=== PATIENT | female | born 1990 | race Caucasian/White ===

== ENCOUNTER 2024-07-21 20:24 | Emergency (ER) | payer MEDICAID ==
[~2024-07-21] VITALS: Ht 172.7 cm; Wt 61.2 kg
[2024-07-21] MEDS ORDERED: ALBUTEROL SULFATE 2.5 MG/3 ML NEBU ONE (21:18)
[2024-07-21] MEDS ORDERED: IPRATROPIUM BROMIDE 0.5 MG/2.5 ML NEBU ONE (21:18)
[2024-07-21 21:20] LABS: BASOPHILS % (AUTO) 0.4 % (0.0-2.0); EOSINOPHILS % (AUTO) 3.2 % (0.0-7.0); HEMATOCRIT 36.7 % (31.2-41.9); HEMOGLOBIN 12.8 g/dL (10.9-14.3); MEAN CORPUSCULAR HEMOGLOBIN 31.4 uug (24.7-32.8); MEAN CORPUSCULAR HGB CONC 35 g/dL (32.3-35.6); MONOCYTES % (AUTO) 8.8 % (0.0-11.0); NEUTROPHILS % (AUTO) 76.6 % (38.5-71.5); PLATELET COUNT (AUTO) 233 K/uL (179-408); RED BLOOD CELL COUNT(AUTO) 4.08 MIL/uL (3.63-4.92); RED CELL DISTRIBUTION WIDTH 12.1 % (12.3-17.7); WHITE BLOOD COUNT (AUTO) 9.4 K/uL (3.8-11.8)
[2024-07-21 21:21] LABS: EOSINOPHILS # (AUTO) 0.3 K/uL (0.0-0.7); MONOCYTES # (AUTO) 0.8 K/uL (0.1-1.30); NEUTROPHILS # (AUTO) 7.2 K/uL (1.8-8.9)
[2024-07-21] MEDS: IPRATROPIUM BROMIDE 0.5 MG/2.5 ML NEBU NEB ONE (21:23)
[2024-07-21] MEDS: ALBUTEROL SULFATE 2.5 MG/3 ML NEBU NEB ONE (21:23)
[2024-07-21 21:28] LABS: CREATININE 0.8 mg/dL (0.6-1.3); POTASSIUM 3.5 mmol/L (3.5-5.1)
[2024-07-21 21:30] VITALS: O2SAT 99
[2024-07-21] MEDS ORDERED: CEFTRIAXONE /D5W 50ML IVPB **ER PYXIS IV ONE (21:57)
[2024-07-21] MEDS ORDERED: AZITHROMYCIN 500MG/ D5W 250ML IVPB **ER PYXIS ONLY IV ONE (21:57)
[2024-07-21] MEDS: IV NS 1000 ML 1,000 ML IV PRN (22:09)
[2024-07-21] MEDS: CEFTRIAXONE 1 G in IV DEXTROSE 5% 50 ML IV ONE (22:16)
[2024-07-21] MEDS: ACETAMINOPHEN 500 MG TABLET PO ONE ×2 (22:24→22:39)
[2024-07-21] MEDS: AZITHROMYCIN IV 500 MG in IV DEXTROSE 5% 250 ML IV ONE (22:27)
[2024-07-21] MEDS ORDERED: AZIT500T4 PO (22:51)
[2024-07-21] MEDS ORDERED: FLUT1BLS15 INH (22:51)
[2024-07-21] MEDS ORDERED: CEFU500T66 PO (22:51)
[2024-07-21] MEDS ORDERED: ALBU8.5H8 INH (22:51)
[2024-07-22 00:09] VITALS: BP 98/59; TEMP 98.9; O2SAT 97
== END 2024-07-22 00:17 | disposition home or self-care (01) ==
LOC: ER 20:24
DX: J18.9 Pneumonia, unspecified organism (principal); J45.909 Unspecified asthma, uncomplicated; F17.290 Nicotine dependence, other tobacco product, uncomplicated; Z60.2 Problems related to living alone; Z20.822 Contact with and (suspected) exposure to COVID-19
CPT/HCPCS: 99284; 96365; 71045; 87426; 87804 ×2; 80048; 85025; 87040; 36415; 94640; 96368; 83605; J0456; J0696; J7040; A4606; A4663; A9150; J3590